=== PATIENT | female | born 1990 | race Caucasian/White ===

== ENCOUNTER 2017-02-08 10:41 | Emergency (ER) | payer OTHER ==
[2017-02-08] MEDS ORDERED: IBUPROFEN 800 MG TAB PO ONE (11:00)
[2017-02-08] MEDS ORDERED: [UNRECOGNIZED DRUG - OTHER] PO (11:00)
--- NOTE | 2017-02-08 11:42 | REP ---
Clinical: Trauma . Comparison: None . Technique: PA and lateral. Findings: The mediastinum and cardiac silhouette are normal. The lung pompa are clear and without acute consolidation, effusion, or pneumothorax. The skeletal structures are intact and normal. Impression: 1. No acute cardiopulmonary process. Signed by Marty Farooq MD 02/08/2017 11:33 A
--- NOTE | 2017-02-08 11:43 | REP ---
Clinical: Trauma. Technique: AP, lateral, bilateral oblique views left hand . Findings: The osseous structures and joint spaces are intact and normal. There is no evidence for acute fracture or dislocation. Surrounding soft tissues are unremarkable. No subcutaneous emphysema or radiodense foreign body. Impression: Normal examination. No acute fracture or dislocation. Signed by Marty Farooq MD 02/08/2017 11:34 A
--- NOTE | 2017-02-08 11:43 | REP ---
Clinical: Trauma. Technique: AP, lateral, bilateral oblique and sunrise views left knee . Findings: The osseous structures and joint spaces are intact and normal. There is no evidence for acute fracture or dislocation. No joint effusion is appreciated. Surrounding soft tissues are unremarkable. No subcutaneous emphysema or radiodense foreign body. Impression: Normal examination. No acute fracture or dislocation. Signed by Marty Farooq MD 02/08/2017 11:35 A
[2017-02-08] MEDS ORDERED: IBUP80TA PO (11:58)
[2017-02-08] MEDS ORDERED: ADACEL/BOOSTRIX VACCINE (DIPHTH/PERTUSS/ACELL/TETANUS)0.5ML SYR (90715) IM ONE (12:15)
[2017-02-08 13:07] VITALS: BP 128/77
== END 2017-02-08 13:08 | disposition home or self-care (01) ==
LOC: EDBD 10:41 → M ED 11:32
DX: S60.222A Contusion of left hand, initial encounter (principal); S20.219A Contusion of unspecified front wall of thorax, initial encounter; S00.81XA Abrasion of other part of head, initial encounter; V48.0XXA Car driver injured in noncollision transport accident in nontraffic accident, initial encounter; Y92.411 Interstate highway as the place of occurrence of the external cause; Z79.2 Long term (current) use of antibiotics